=== PATIENT | male | born 1980 | race Caucasian/White ===

== ENCOUNTER 2021-08-09 08:08 | Emergency (ER) | payer OTHER, SELFPAY ==
[2021-08-09] VITALS (37 sets, daily range): BP systolic 127–152; BP diastolic 74–96; PULSE 44–59; RESP 8–23; TEMP 36.6; O2SAT 95–100
--- NOTE | ~2021-08-09 | CT_ITS ---
EXAMINATION: CTA BRAIN/CAROTID DATE: 08/09/2021 09:39 INDICATION: Left-sided headache and facial numbness TECHNIQUE: Computed tomographic angiography (CTA) of the head and neck was performed with 100 mL Omni paque-350 intravenous contrast. Multiplanar reconstructions and maximum intensity projection 3D-recon structions of the carotid arteries and of the intracranial arteries were created by the technologist on a separate workstation. Precontrast CT of the head was also obtained. Automated exposure control and iterative reconstruction technique were employed.The dose-length product was 1920.71 mGy-cm. COMPARISON: None. FINDINGS: Carotid arteries: There is no evident plaque with 0% stenosis of the left and right carotid bulbs relative to normal di stal artery lumen diameter (NASCET criteria). Cervical soft tissues and superior mediastinum are norm al. Visualized airway and upper lungs are clear. Mild disc height loss with posterior disc osteophyte complex resulting in mild central canal stenosis at C5-C6. Head: No acute intracranial hemorrhage, acute infarction or abnormal extra axial fluid collection. Ventricl es are normal and symmetric. No mass/mass effect. No abnormally enhancing brain lesions. The orbits, paranasal sinuses and mastoid air cells are normal. Intracranial arteries There is no hemodynamically significant stenosis in the vertebral, basilar and internal carotid arter ies. Vertebral arteries are codominant. There are no aneurysms identified. Both A1 and P1 segments a re patent. Cerebral arterial arborization appears symmetric. IMPRESSION: 1. No evident plaque with 0% stenosis of the left and right carotid bulbs relative to normal distal a rtery lumen diameter (NASCET criteria). 2. Normal head CT and CT angiogram. Reviewed, dictated and finalized at location A. DDLE BUG OPERATOR IMPRESSION: 1. No evident plaque with 0% stenosis of the left and right carotid bulbs relat lorenzo to normal distal artery lumen diameter (NASCET criteria). 2. Normal head CT and CT angiogram.
--- NOTE | ~2021-08-09 | XR_ITS ---
EXAMINATION: XR chest 2V DATE: 08/09/2021 09:21 INDICATION: Left-sided chest pain TECHNIQUE: PA and lateral views of the chest were obtained. COMPARISON: None FINDINGS: The lungs are clear with no focal airspace opacities, pulmonary edema, pleural effusion or pneumothor ax. The cardiomediastinal silhouette is normal. Mild thoracic spondylosis. IMPRESSION: 1. No acute cardiopulmonary disease. Reviewed, dictated and finalized at location A. WORKER FOREMAN
--- NOTE | 2021-08-09 08:21 | ECG_ITS ---
Measurements Intervals [place] Rate: 48 P: 56 [place]: 169 QRS: 32 QRSD: 93 T: 40 QT: 443 QTc: 397 Interpretive Statements SINUS BRADYCARDIA INCOMPLETE RIGHT BUNDLE BRANCH BLOCK ABNORMAL ECG Electronically Signed On 08-09-2021 12:37:10 LOCK TENDER by Jed Plummer D.O.
--- NOTE | 2021-08-09 08:25 | ED.GENADULT ---
HPI - General Adult General Chief complaint: Chest Pain Stated complaint: left facial numbness Time Seen by Provider: 08/09/21 08:19 Source: RN notes reviewed History of Present Illness HPI narrative: Patient presents emergency department from home for left-sided facial numbness and headache. Patient states that all of his symptoms again approximately 2 days ago he states that 2 days ago he was having some intermittent left-sided chest pain that was just underneath the left breast he states that it felt like a air bubble and had approximately 10 episodes were short in nature throughout the day states that he had one episode yesterday but no chest pain today he states that yesterday began to pain in his left lateral neck going up into his left head and achiness in his left shoulder. He states that today he developed numbness in his left side of his face this morning when he went to bend over to help his children he states the numbness has improved but he still has mild numbness in the left cheek he denies any facial droop or trouble speaking denies any unilateral weakness he denies any numbness in the arms or he denies any chest pain at this time Related Data Home Medications Medication Instructions Recorded Confirmed adalimumab [Humira] SUBCUT 08/08/21 Allergies Allergy/AdvReac Type Severity Reaction Status Date / Time No Known Allergies Allergy Verified 08/08/21 08:12 Review of Systems Review of Systems: Gen.: Denies fevers or chills Eyes: Denies eye pain or visual change ENT: Denies congestion Respiratory: Denies shortness of breath or cough CV: Ports chest pain GI: Denies abdominal pain nausea, emesis or diarrhea denies burning, urgency, frequency or hematuria Musculoskeletal: Denies back pain or muscle pain Neuro: See HPI Skin: Denies rash Except as documented, all other systems reviewed and negative PMFSH Past Medical History Medical History (Updated 08/09/21 @ 12:53 by Anup Adorno DO) Psoriasis Family History Family History (System 12/15/19 @ 10:06 by Vielka Tabares) Other Family history of seizure disorder Social History Social History Smoking status: Never smoker Alcohol intake: current Substance use: never Substance use type: does not use Exam Narrative: APPEARANCE: No acute distress, nontoxic, resting in bed HEENT: Normocephalic, atraumatic, OMM, TMs clear bilaterally EYES: PERRL, EOMI NECK: Supple, nontender, full range of motion without pain, no meningismus tender to palpation over the left paravertebral cells C1-2 just at the base of the skull no overlying rash RESPIRATORY: No respiratory distress, clear to auscultation bilaterally with no rhonchi wheezing or rales CARDIOVASCULAR: RRR s murmur ABDOMINAL: Soft, nontender, nondistended MUSCULOSKELETAL: Moves all extremities. No clubbing, cyanosis or edema. NEURO: A and O ?3, following commands, speech normal, cranial nerves II through XII grossly intact,muscle strength 5 out of 5 bilateral upper and lower extremities SKIN:: Warm, dry. Normal Color PSYCHIATRIC: Normal affect/mood Course Course Emergency Course: Patient states numbness of face is resolved Patient's PCP was paged several times Discussed with patient results of workup and diagnosis. Discussed need for follow-up with primary care, proper use of medication, and reasons to return to the emergency department. Patient understands and agrees to current treatment plan Vital Signs Vital signs: Vital Signs Temperature 98 F 08/09/21 08:23 Pulse Rate 49 L 08/09/21 08:23 Respiratory Rate 12 08/09/21 08:23 Blood Pressure 152/96 H 08/09/21 08:23 Pulse Oximetry 100 08/09/21 08:23 Temperature 98 F 08/09/21 08:23 Pulse Rate 58 L 08/09/21 13:03 Respiratory Rate 14 08/09/21 13:03 Blood Pressure 134/82 08/09/21 13:03 Pulse Oximetry 98 08/09/21 13:03 Medical Decision Adrienne
[2021-08-09 08:33] LABS: Basophils Absolute Auto 0.1 K/mm3 (0.0-0.1); Basophils Percent Auto 0.9 % (0.2-1.2); Eosinophils Absolute Auto 0.1 K/mm3 (0-0.3); Eosinophils Percent Auto 1.2 % (0-4.4); Hematocrit 43.6 % (42.0-52.0); Hemoglobin 14.7 g/dL (14.0-18.0); Immature Granulocyte Absolute 0.04 K/mm3 (0.00-0.031); Immature Granulocyte Percent A 0.6 % (0-0.5); Lymphocytes Absolute Auto 2.59 K/mm3 (0.9-3.2); Lymphocytes Percent Auto 38.3 % (18.3-44.2); Mean Corpuscular HGB Conc 33.7 g/dl (32-36); Mean Corpuscular Hemoglobin 31.1 pg (26-34); Mean Corpuscular Volume 92.2 fl (80-100); Mean Platelet Volume 9.9 fl (7.4-10.4); Monocytes Absolute Auto 0.8 K/mm3 (0.1-0.6); Monocytes Percent Auto 11.8 % (2.6-8.5); Neutrophils Absolute Auto 3.2 K/mm3 (1.3-6.7); Neutrophils Percent Auto 47.2 % (45.5-73.1); Platelet Count Result 261 k/mm3 (150-375); Red Blood Count 4.73 M/mm3 (4.6-6.20); Red Cell Distribution Width 12.6 % (11.5-14.5); White Blood Count 6.8 K/mm3 (4.5-10.0)
[2021-08-09 08:45] LABS: Partial Thromboplastin Time 28.4 SECONDS (22.3-36.8)
[2021-08-09 08:50] LABS: Alanine Aminotransferase 56 U/L (4-50); Albumin Level 4.9 g/dL (3.5-5.1); Alkaline Phosphatase 55 U/L (38-126); Anion Gap 11 mmol/L (8-16); Aspartate Amino Transferase 49 U/L (17-59); Bilirubin,Total 1.4 mg/dL (0.2-1.3); Blood Urea Nitrogen 16 mg/dL (9-20); Calcium 9.3 mg/dL (8.4-10.2); Carbon Dioxide 26 mmol/L (22-30); Chloride 102 mmol/L (98-107); Estimated CRCL calculation 124 ml/min; Estimated Glomerular Filt Rate > 60; Glucose 99 mg/dL (65-110); Lipase 86 U/L (23-300); Magnesium 2.2 mg/dL (1.6-2.3); Potassium 4.6 mmol/L (3.4-5.0); Sodium 139 mmol/L (137-145)
[2021-08-09 08:51] LABS: Prothrombin Time 13.1 Seconds (11.1-14.7)
[2021-08-09 09:01] LABS: Troponin I 0.012 ng/mL (0.000-0.034)
--- NOTE | 2021-08-09 11:11 | PC.NURSE ---
Patient report given to MARGARETTE Polk. All questions answered.
[2021-08-09 11:46] LABS: Troponin I < 0.012 ng/mL (0.000-0.034)
== END 2021-08-09 13:04 | disposition home or self-care (01) ==
PROVIDERS: Emergency Provider Emergency Medicine; PCP Family Medicine
DX: R20.2 Paresthesia of skin (principal); S16.1XXA Strain of muscle, fascia and tendon at neck level, initial encounter; R07.89 Other chest pain; L40.9 Psoriasis, unspecified; R00.1 Bradycardia, unspecified; I45.10 Unspecified right bundle-branch block; X58.XXXA Exposure to other specified factors, initial encounter
CPT/HCPCS: 36415; 70496; 70498; 71046; 80053; 83690; 83735; 84484; 85025; 85610; 85730; 93005; 99284; Q9967

== ENCOUNTER → 2022-07-09 09:50 | Outpatient (CLI) | payer OTHER, SELFPAY ==
--- NOTE | ~2022-07-09 | XR_ITS ---
Lumbosacral Spine: AP and lateral views Clinical History: Pain Findings: The normal lordotic curve is maintained. The vertebral bodies and posterior elements are i ntact. The intervertebral disc spaces are preserved. The sacroiliac joints are normally outlined. Impression: No significant abnormality. Reviewed, dictated and finalized at [facility]. IE Impression: No significant abnormality.
== END ==
PROVIDERS: PCP Family Medicine; Visit Provider Family Medicine
DX: G89.29 Other chronic pain (principal)
CPT/HCPCS: 72100

== ENCOUNTER 2024-03-16 08:16 | Outpatient (CLI) | payer OTHER, SELFPAY ==
[2024-03-16 13:27] LABS: Basophils Absolute Auto 0.1 K/mm3 (0.0-0.1); Eosinophils Absolute Auto 0.2 K/mm3 (0-0.3); Eosinophils Percent Auto 2.8 % (0-4.4); Hematocrit 44.5 % (42.0-52.0); Hemoglobin 14.3 g/dL (14.0-18.0); Immature Granulocyte Absolute 0.06 K/mm3 (0.00-0.031); Immature Granulocyte Percent A 0.9 % (0-0.5); Lymphocytes Absolute Auto 2.19 K/mm3 (0.9-3.2); Lymphocytes Percent Auto 32.7 % (18.3-44.2); Mean Corpuscular HGB Conc 32.1 g/dl (32-36); Mean Corpuscular Hemoglobin 30.8 pg (26-34); Mean Corpuscular Volume 95.7 fl (80-100); Mean Platelet Volume 10.1 fl (7.4-10.4); Monocytes Absolute Auto 0.7 K/mm3 (0.1-0.6); Monocytes Percent Auto 10.2 % (2.6-8.5); Neutrophils Absolute Auto 3.5 K/mm3 (1.3-6.7); Neutrophils Percent Auto 52.4 % (45.5-73.1); Platelet Count Result 259 k/mm3 (150-375); Red Blood Count 4.65 M/mm3 (4.6-6.20); Red Cell Distribution Width 12.9 % (11.5-14.5); White Blood Count 6.7 K/mm3 (4.5-10.0)
[2024-03-16 13:53] LABS: Alanine Aminotransferase 52 U/L (6-50); Albumin Level 4.5 g/dL (3.5-5.1); Alkaline Phosphatase 48 U/L (38-126); Anion Gap 9 mmol/L (4-12); Aspartate Amino Transferase 61 U/L (17-59); Bilirubin,Total 0.9 mg/dL (0.2-1.3); Blood Urea Nitrogen 16 mg/dL (9-20); Calcium 9.2 mg/dL (8.4-10.2); Carbon Dioxide 30 mmol/L (22-30); Chloride 102 mmol/L (98-107); Cholesterol 145 mg/dL (0-200); Estimated Glomerular Filt Rate > 60; Glucose 87 mg/dL (65-110); HDL Direct 40 mg/dL; Potassium 4.6 mmol/L (3.4-5.0); Sodium 141 mmol/L (137-145); Triglycerides 101 mg/dL (<150)
[2024-03-16 14:08] LABS: LDL Cholesterol Direct 71 mg/dL
[2024-03-16 14:14] LABS: Hemoglobin A1C 5.6 % (<5.7)
[2024-03-16 14:22] LABS: Vitamin D 25 Hydroxy 37.1 ng/mL
== END 2024-03-16 08:17 | disposition home or self-care (01) ==
LOC: ANHGOSHLAB 08:17
PROVIDERS: PCP Family Medicine; Visit Provider Family Medicine
DX: Z00.00 Encounter for general adult medical examination without abnormal findings (principal); E78.5 Hyperlipidemia, unspecified; E55.9 Vitamin D deficiency, unspecified; R73.9 Hyperglycemia, unspecified; L40.50 Arthropathic psoriasis, unspecified; E53.8 Deficiency of other specified B group vitamins; Z79.899 Other long term (current) drug therapy; Z13.29 Encounter for screening for other suspected endocrine disorder
CPT/HCPCS: 36415; 80053; 80061; 82306; 82607; 83036; 84443; 85025

== ENCOUNTER 2025-03-05 11:42 | Outpatient (CLI) | payer OTHER, SELFPAY ==
--- OUTSIDE RECORDS SUMMARY | 2025-03-05 11:44 | XMS_ITS | Clinical Summary ---
Author Organization [facility] Address [address] [place] [address] Care Team Providers Care Corporate Investigator Name Role Phone Unavailable Primary Care Provider Unavailabl e Immunizations Immunization Administration Dates Next Due Covid-19, Mrna, Lnp-s, Pf, 30 Mcg/0.3 Ml Dose (P fizer) 05/26/2021 Social History Tobacco Use Types Packs/Day Years Used Date Smoking Tobacco: Never Assessed Sex and Gender Information Value Date Recorded Sex Assigned at Not on file Legal Sex Male 2:49 AM CDT Gender Identity Not on file Sexual Orientation Not on file Plan of Treatment Health Maintenance Due Date Last Done Comments Hepatitis C Virus (HCV) Screening 1980 TdaP Immunization 1980 Hepatitis B Immunization (1 of 3 - 19+ 3-dose series) 01/30/2000 Human Papillomavirus (HPV) Immunization (1 - 3-dose SCDM series) 01/30/2008 Influenza Immunization (#1) 2025 SARS-COV-2 Immunization (2024- season) 2025 05/26/2021, 09/30/2020, 09/05/2020 Respiratory Syncytial Virus (RSV) Immunization (Adult) (1 - 1-dose 75+ series) 01/30/2056 Meningococcal Immunization (ACWY) Aged Out No longer eligible b ased on patient's age to complete this topic Pneumococcal Immunization Combined Aged Out No longer eligible b ased on patient's age to complete this topic Rotavirus Immunization Aged Out No lo nger eligible based on patient's age to complete this topic
[2025-03-05 13:31] LABS: Hematocrit 48.1 % (42.0-52.0); Hemoglobin 15.1 g/dL (14.0-18.0); Immature Granulocyte Percent A 0.7 % (0-0.5); Lymphocytes Absolute Auto 2.84 K/mm3 (0.9-3.2); Mean Corpuscular HGB Conc 31.4 g/dl (32-36); Mean Corpuscular Hemoglobin 30.0 pg (26-34); Mean Corpuscular Volume 95.4 fl (80-100); Nucleated Red Blood Cells Absolute Auto 0.000 K/mm3 (0.0-0.012); Nucleated Red Blood Cells Perc 0.0 % (0.0-0.2); Platelet Count Result 271 k/mm3 (150-375); Red Blood Count 5.04 M/mm3 (4.6-6.20); White Blood Count 7.5 K/mm3 (4.5-10.0)
[2025-03-05 14:15] LABS: Thyroid Stimulating Hormone Reflex 2.470 uIU/mL (0.465-4.68)
[2025-03-05 14:18] LABS: Hemoglobin A1C 5.7 % (<5.7)
[2025-03-05 14:41] LABS: Alanine Aminotransferase 72 U/L (6-50); Albumin Level 5.1 g/dL (3.5-5.1); Alkaline Phosphatase 49 U/L (38-126); Anion Gap 9 mmol/L (4-12); Aspartate Amino Transferase 46 U/L (17-59); Bilirubin,Total 1.2 mg/dL (0.2-1.3); Blood Urea Nitrogen 17 mg/dL (9-20); Calcium 9.8 mg/dL (8.4-10.2); Carbon Dioxide 27 mmol/L (22-30); Chloride 101 mmol/L (98-107); Cholesterol 207 mg/dL (0-200); Estimated Glomerular Filt Rate > 60; Glucose 92 mg/dL (65-110); HDL Direct 58 mg/dL; Potassium 4.7 mmol/L (3.4-5.0); Sodium 137 mmol/L (137-145); Total Protein 8.1 g/dL (6.3-8.2); Triglycerides 133 mg/dL (<150)
[2025-03-05 14:59] LABS: Prostate Specific Antigen 0.4 ng/mL (< OR = 4.0)
== END 2025-03-05 11:43 | disposition home or self-care (01) ==
LOC: ANHGOSHLAB 11:42
PROVIDERS: PCP Nurse Practitioner Family; Visit Provider Nurse Practitioner Family
DX: E78.5 Hyperlipidemia, unspecified (principal); Z12.5 Encounter for screening for malignant neoplasm of prostate; E55.9 Vitamin D deficiency, unspecified; I10 Essential (primary) hypertension; R73.01 Impaired fasting glucose
CPT/HCPCS: 36415; 80053; 80061; 82306; 83036; 84153; 84443; 85025; G0103

== ENCOUNTER 2025-04-27 08:38 | Outpatient (CLI) | payer OTHER, SELFPAY ==
--- OUTSIDE RECORDS SUMMARY | 2024-12-30 08:00 | XMS_ITS ---
Author Organization [facility] Address [address] [facility] [address] [place] [address] Care Team Providers Care Milk Handler Name Role Phone ANTON ABARCA Unavailable [phone] REASON FOR VISIT Lumbar Spine, Lupe Pt: Louise Grp Encounters Encounter Location Date Provider Diagnosis [facility] [address] [facility] [address] [place] [address] 12/30/2024 ANTON ABARCA Plan Of Treatment No Information Progress Notes * John FLORESDOB:[birth year] (45 yo M)Acc No.[id number]:12/30/2024 Patient: John [place] Provider: Berenice ABARCA M.D. :1980 A ge:44 Y S ex:Male Date:12/30/2024 Address:[address] [place], [place] [id number] Subjective: * Chief Complaints: * 1 . Lumbar Spine, Lupe Pt: Louise Grp. * Medical History: Objective: * Vitals: Assessment: Plan: * Treatment: * * Electronic signature of NICK ABARCA MD on 04/27/2025 at 08:51 AM STAGE SET UP WORKER Sign off status: Pending * Provider: Berenice ABARCA M.D. Date: 0 12/30/2024 Generated for Heidi kyle/Chloé/Natalyitting on: 06/27/2024 08:51 AM STAGE SET UP WORKER
--- OUTSIDE RECORDS SUMMARY | 2025-04-27 08:52 | XMS_ITS | Clinical Summary ---
Author Organization [facility] Address [address] [place] [address] Care Team Providers Care Thermal Cutting Machine Operator Name Role Phone Unavailable Primary Care Provider [...]
--- OUTSIDE RECORDS SUMMARY | 2025-04-27 08:52 | XMS_ITS | Patient Health Record ---
Author Organization [facility] Address [address] [place] [address] Care Team Providers Care Senior Sql Server Developer Name Role Phone ANTON ABARCA Unavailable [phone] Reason For Referral No Information Plan Of Treatment No Information
--- OUTSIDE RECORDS SUMMARY | 2025-04-27 08:52 | XMS_ITS | Clinical Summary ---
Author Organization [facility] Address [address] [place] [address] Care Team Providers Care Community Marketing Coordinator Name Role Phone Cortes Barnhart MD Primary Care Provider [phone] Allergies Active Allergy Reactions Criticality Noted Date Comments Pollen Extracts Itching Low 08/03/2022 Medications naproxen (Aleve) 220 mg tablet Take by mouth every 12 (twelve) hours as needed for pain Active atorvastatin (LIPITOR) 20 mg tablet Take 1 tablet (20 mg total) by mouth daily Active adalimumab-atto (Amtusharta,CF, Autoinjector) 40 mg/0.8 mL auto-injector Inject 40 mg under the skin every 14 (fourteen) days 6 mL 3 06/22/2024 Active Active Problems No known active problems Surgical History Surgery Date Site/Laterality Comments FOOT SURGERY Medical History Medical History Date Comments Arthritis Family History Medical History Relation Name Comments Cancer Brother Seizures Brother Hyperlipidemia Father Relation Name Status Comments Brother Father Social History Tobacco Use Types Packs/Day Years Used Date Smoking Tobacco: Never Smokeless Tobacco: Never Tobacco Cessation:Counseling Given: Not Answered AUDIT-C Answer Date Recorded Q1: How often do you have a drink containing alc ohol? Monthly or less 08/03/2022 Q2: How many drinks containi ng alcohol do you have on a typical day when you are drinking? 1 or 2 08/03/2022 Q3: How often do you have si x or more drinks on one occasion? Never 08/03/2022 Sex and Gender Information Value Date Recorded Sex Assigned at Not on file Legal Sex Male 6:16 AM MANAGER MACHINE Gender Identity Not on file Sexual Orientation Not on file Last Filed Vital Signs Vital Sign Reading Time Taken Comments Blood Pressure 169/103 12/12/2023 10:42 AM CDT Pulse 57 12/12/2023 10:42 AM CDT Temperature 37.2 C (98.9 F) 12/12/2023 10:42 AM CDT Respiratory Rate 20 08/03/2022 8:23 AM MANAGER MACHINE Oxygen Saturation 99% 12/12/2023 10:42 AM CDT Inhaled Oxygen Concentration - - Weight 86.2 kg (190 lb) 06/22/2024 7:48 AM MANAGER MACHINE Height 188 cm (6' 2) 06/22/2024 7:48 AM MANAGER MACHINE Body Mass Index 24.39 06/22/2024 7:48 AM MANAGER MACHINE Plan of Treatment Health Maintenance Due Date Last Done Comments Depression Screening 1980 DTaP/Tdap/Td Vaccine (1 - Tdap) 01/30/1992 Varicella Vaccines (1 of 2 - 13+ 2-dose series) 1994 Regular Well Visit/Exam 18-64 1999 HPV Vaccines (1 - 3-dose SCD M series) 01/30/2008 Covid-19 Vaccine (4 - 2024-2 6 season) 2025 05/26/2021, 09/30/2020, 09/05/2020 Influenza Vaccine (#1) 2025 04/17/2019 Hepatitis B Screening Completed 12/17/2017 Hepatitis C Screening Completed 12/17/2017 Pneumococcal vaccine <65 Aged Out No longer eligible based on patient's age to complete this topic Goals Goal Patient Goal Type Associated Problems Recent Progress Patient-Stated? Author CCM Chronic Pain Care Plan Chronic Care Management No Ashley Turner, RN Note: Problem: Chronic Pain Goals: 1. Minimize further functional decline 2. Maximize quality of life 3. Control pain Strategies: - Activity/exercise program recommendation - Conservative stepwise pain medicine strategy with multi-disciplinary approach - Recommend healthy lifestyle strategies and compensatory methods as needed Procedures Procedure Name Priority Date/Time Associated Diagnosis Comments HEPATITIS C ANTIBODY Routine 12/17/2017 11:12 AM CDT High risk medication use from Last 3 Months or Most Recently Relevant to Health Maintenance Results * Hepatitis C antibody (12/17/2017 11:12 AM CDT) Hep C Ab Nonreactive Nonreactive [facility] Comment: Interpretive Data Positive and greyzone results should be confirmed by a molecular method. If positive or greyzone, a second separately collected sample should be submitted for Hepatitis C Virus RNA. Detection and Quantitation by Real-Time Reverse Shank Breaker-PCR.Current Interpretive data was last revised on 2016. Blood specimen (specimen) 12/17/2017 11:12 AM CDT 12/17/2017 11:15 AM CDT Narrative [facility] - 12/17/2017 1:03 PM CDT us Jose Alberto Zhu MD LAB MICROBIOLOGY - GENERAL OR DERABLES Edited Result - Final [facility] Department [place] [address] from Last 3 Months or Most Recently Relevant to Health Maintenance Insurance [employer] [facility] [employer] [facility] Care Teams Community Marketing Coordinator Relationship Specialty Start Date End Date Cortes Barnhart MD [address] [place] [address] [place] [address] PCP - General Family Medicine 02/17/19
[2025-04-27 13:05] LABS: Alanine Aminotransferase 58 U/L (6-50); Albumin Level 4.8 g/dL (3.5-5.1); Alkaline Phosphatase 42 U/L (38-126); Anion Gap 7 mmol/L (4-12); Aspartate Amino Transferase 53 U/L (17-59); Bilirubin,Total 1.0 mg/dL (0.2-1.3); Blood Urea Nitrogen 15 mg/dL (9-20); Calcium 9.3 mg/dL (8.4-10.2); Carbon Dioxide 30 mmol/L (22-30); Chloride 100 mmol/L (98-107); Estimated Glomerular Filt Rate > 60; Glucose 86 mg/dL (65-110); Potassium 4.2 mmol/L (3.4-5.0); Sodium 137 mmol/L (137-145); Total Protein 7.8 g/dL (6.3-8.2)
== END 2025-04-27 08:39 | disposition home or self-care (01) ==
LOC: ANHGOSHLAB 08:38
PROVIDERS: PCP Nurse Practitioner Family; Visit Provider Nurse Practitioner Family
DX: R74.01 Elevation of levels of liver transaminase levels (principal)
CPT/HCPCS: 36415; 80053